=== PATIENT | male | born 1960 | race Caucasian/White ===

== ENCOUNTER 2021-01-05 12:30 | Outpatient (RCR) | payer OTHER, SELFPAY ==
--- NOTE | 2020-11-08 14:00 | PTOPEVAL ---
INITIAL PHYSICAL THERAPY EVALUATION and PLAN OF CARE Thank you for referring Carlos Levy to [facility].? Carlos is scheduled to be seen for physical therapy?2x/week for 4 weeks. Please review, sign, date and return this plan of care LUCINDA. I agree with and certify that the following plan of care is medically necessary. Referring Physician Date Admitting Provider: Attending Provider: Olga Sam MD Referring Provider: *PT Outpatient Evaluation Start: 11/08/20 12:38 Freq: Status: Active Protocol: Document 11/08/20 12:35 ELOINA (Rec: 11/08/20 14:00 ELOINA [id number]) Therapy Assessment Status Assessment Status Assessment Status Evaluation Outpatient Past Medical History Past Medical History Source of Past Medical History Patient Cardiovascular History Hx Hypercholesterolemia Yes Hx Hypertension Yes Respiratory History Hx Other Respiratory Disorders Yes: CPAP - gone since gastric bypass Gastrointestinal History Hx Cholecystectomy Yes: 2005 Hx Gastric Bypass Surgery Yes: Aug 04, 2019 Musculoskeletal History Hx Back Pain Yes Hx Fractures Yes: R leg 1966 Endocrine History Hx Diabetes Yes: no meds now since gastric bypass Evaluation Information Problem Diagnosis Low back pain with sciatica, chronic Onset exacerbation ~ 3 months ago Cause initially around 10 years Subjective Information recent episode - worked on the Query Text:As Reported By Patient/ car - ~ 2 hours - difficulty Family with changing plugs, etc. Sharon something happen to back. Pain in past usually goes away on its own - longest in the past 1 month - this episode has lasted 3 months Trying to relieve - extra strength Tylenol, inversion table, hot and cold packs. Every night - wakes up between 3-6 a.m. when in bed - too difficult to get back to sleep even with repositioning. Gets up and goes to recliner - then can come back to bed around 7 - will sleep to 10 or even noon. Hurts worse when in bed. Did mow lawn yesterday - pushing mower - increased pain . Pain will go all t
--- NOTE | 2020-12-08 15:43 | PTOPEVAL ---
Addendum entered by MARCELO GONZALEZ, PT, DPT 12/08/20 15:51: Frequency is 2x/wk x 3 wks not 2x/wk x 6 wks. Original Note: PHYSICAL THERAPY RE-EVALUATION and UPDATED PLAN OF CARE Thank you for referring Carlos Levy to [facility].? Carlos is making progress in PT but has not fully reached goals set. There has been a decrease in pain, improved L SIJ function, increasing of core strength and L LE flexibility, and functional abilities but at goal setting. He will continued to benefit from skilled PT to fully achieve goals set. Carlos is scheduled to be seen for physical therapy?2x/week for 6 weeks. Please review, sign, date and return this plan of care LUCINDA. I agree with and certify that the following plan of care is medically necessary. Referring Physician Date Admitting Provider: Attending Provider: Olga Sam MD Referring Provider: Therapy Assessment Status Assessment Status Assessment Status Re-evaluation Evaluation Information Problem Diagnosis Low back pain with sciatica, chronic Subjective Information Carlos stated that he is able Query Text:As Reported By Patient/ to sleep the entire night in Family bed - pillow between knees and ankles helping. Back to performing usual activities around the house - but needs to take more breaks than in the past. Has gone to using home TENS unit rather than extra strength Tyelnol and inversion table - helps better . Not using inversion table at home. Moist heat at end of tx session really helps to make him feel better. Pain Assessment Self Report Pain Assessment Left Posterior Leg(s) Reported Pain Level 5 Pain Description Aching,Dull Radicular Pain Location L posterior thigh and calf Lowest Pain Intensity 3 Greatest Pain Intensity 6 Cervical and Lumbar ROM Lumbar ROM Lumbar Flexion (0-90) 40 Query Text:Active in Degrees Lumbar Extension (0-40) 15 Query Text:Active in Degrees Lumbar Lateral Flexion Right (0-40) 15 Query Text:Active in Degrees Lumbar Lateral Flexion Left (0-40) 15 Query Text:Active in Degrees Lumbar Comments with forward flexion - increased pain L SIJ/lower back increased discomfort with R side bending - L lower back region Muscle Length Testing Muscle Length Testing Left Hamstring Length -29 Query Text:(90 - 90 Position) Right Hamstring Length
--- NOTE | 2021-01-05 13:34 | PTOPEVAL ---
PHYSICAL THERAPY DISCHARGE SUMMARY Thank you for referring Carlos Levy to [facility].? Carlos has been seen x 15 visits in PT. He has met all goals set and ready for d/c from PT to HEP. I agree with Carlos's discharge from PT. Referring Physician Date Admitting Provider: Attending Provider: Olga Sam MD Referring Provider: Therapy Assessment Status Assessment Status Assessment Status Discharge Evaluation Information Problem Diagnosis Low back pain with sciatica, chronic Subjective Information Carlos states that is back is Query Text:As Reported By Patient/ feeling much better. Takes Family extra Tylenol when knows that he has increase in activity. Able to do lawn mowing without increase in discomfort - including weed waking and blowing. Able to sleep in bed now - helps to keep pillow between knees and ankles. Pain Assessment Timing of Pain Assessment Timing of Pain Assessment Assessment Pain Scale Pain Scale Used Numeric (1 - 10) Self Report Pain Assessment Left Posterior Leg(s) Reported Pain Level 3 Radicular Pain Location no radicular L LE pain Lowest Pain Intensity 2 Greatest Pain Intensity 5 Pain Score Pain Score 3: Self Report Interventions Used Interventions Used By Clinicians Exercise Cervical and Lumbar ROM Lumbar ROM Lumbar Flexion (0-90) 40 Query Text:Active in Degrees Lumbar Extension (0-40) 20 Query Text:Active in Degrees Lumbar Lateral Flexion Right (0-40) 15 Query Text:Active in Degrees Lumbar Lateral Flexion Left (0-40) 15 Query Text:Active in Degrees Lumbar Comments no c/o's discomfort with trunk AROM Muscle Length Testing Muscle Length Testing Left Hamstring Length -24 Query Text:(90 - 90 Position) Right Hamstring Length -18 Query Text:(90 - 90 Position) Muscle Length Testing Comments heel cord testing - to ~ 5 deg bilaterally Palpation Assessment Palpation Palpation increase in pelvic symmetry in standing, symmetrical SIJ mobility with trunk AROM P-A mob to sacrum and L5-2 - good mobility - no pain Gait Assessment Gait Pattern Assessment Other Gait Observations normal gait pattern - symmetrical heel/toe pattern, step length, arm swing, etc. PT Clinical Summary Clinical Summ
== END 2021-01-06 07:29 | disposition home or self-care (01) ==
LOC: ANHPT 12:30
DX: M54.40 Lumbago with sciatica, unspecified side (principal)
CPT/HCPCS: 97110; 97140; 97161